=== PATIENT | male | born 1980 | race American Indian/Alaskan Native ===

== ENCOUNTER 2021-01-24 12:38 | Emergency (ER) | payer OTHER ==
[2021-01-24 14:51] VITALS: BP 126/83
[2021-01-24] MEDS ORDERED: LIDOCAINE (1%) 10 MG/1 ML VIAL 20 ML MDV INFILTRATI ONE (15:11)
--- NOTE | 2021-01-24 15:17 | Emergency Department Report ---
- General Chief Complaint: Wound/Laceration Stated Complaint: CUT FINGER/LAC Time Seen by Provider: 01/24/21 14:59 Source: patient Mode of arrival: Ambulatory Limitations: No Limitations - History of Present Illness Initial Comments: Patient is a 40-year-old male presents emergency room complaints of a laceration to the right index finger that occurred just prior to arrival. Patient states he accidentally cut himself with a razor blade while cutting a bag. He states his tetanus immunization has been within the last 5 years. He denies any difficulty moving the finger. He denies any numbness or weakness. No past medical history. No allergies to medications. - Related Data Allergies Allergy/AdvReac Type Severity Reaction Status Date / Time No Known Allergies Allergy Unverified 01/24/21 14:48 ED Review of Systems ROS: Stated complaint: CUT FINGER/LAC Other details as noted in HPI Comment: All other systems reviewed and negative ED Past Medical Hx - Past Medical History Previous Medical History?: No - Surgical History Past Surgical History?: No - Social History Smoking Status: Never Smoker Substance Use Type: None, Alcohol ED Physical Exam - General Limitations: No Limitations General appearance: alert, in no apparent distress - Head Head exam: Present: atraumatic, normocephalic - Eye Eye exam: Present: normal appearance - ENT ENT exam: Present: mucous membranes moist - Extremities Exam Extremities exam: Present: other (there is a 2 cm curved laceration present to the distal end of the right index finger, no active bleeding, no foreign body, no muscle/tendon involvement, FROM, neurovascularly intact ) - Neurological Exam Neurological exam: Present: alert, oriented X3 - Psychiatric Psychiatric exam: Present: normal affect, normal mood - Skin Skin exam: Present: warm, dry ED Course Vital Signs 01/24/21 14:49 Temperature 98.7 F Pulse Rate 61 Blood Pressure 126/83 [Left] O2 Sat by Pulse 99 Oximetry - Laceration /Wound Repair Right Finger Wound Location: upper extremity (right index finger) Wound Length (cm): 2 Wound's Depth, Shape: superficial Wound Explored: clean Irrigated w/ Saline (ccs): 50 Betadine Prep?: Yes Anesthesia: 1% Lidocaine Volume Anesthetic (ccs): 3 Wound Debrided: moderate Wound Repaired With: sutures Suture Size/Type: 4:0 Number of Sutures: 5 (ethilon) Layer Closure?: No Sterile Dressing Applied?: Yes Progress: Verbal consent obtained by patient Wound irrigated with saline and thoroughly scrubbed with Betadine, no foreign bodies identified, no muscle or tendon vomit, 3 cc of 1% lidocaine with epinephrine used anesthetic, Betadine prep again, sterile drapes applied, sterile gloves worn, 4-0 Ethilon used for skin closure, 5 sutures placed, patient tolerated well, no complications, bleeding controlled, sterile dressing applied ED Medical Decision Making - Medical Decision Making Patient is a 40-year-old male presents emergency room complaints of a laceration to the right index finger that occurred just prior to arrival. Patient states he accidentally cut himself with a razor blade while cutting a bag. He states his tetanus immunization has been within the last 5 years. He denies any difficulty moving the finger. He denies any numbness or weakness. No past medical history. No allergies to medications. Vitals are stable. On exam:there is a 2 cm curved laceration present to the distal end of the right index finger, no active bleeding, no foreign body, no muscle/tendon involvement, FROM, neurovascularly intact. Laceration repaired per procedure note without any complications. Advised patient Sutures need to be removed in 10 to 14 days, may return to emergency room for removal. Please keep area clean, dry, covered. Wash with antibacterial soap and water and pat dry. No hot tub or pool. Showering is fine. Follow-up with your primary care doctor for reexamination. Return to emergency room immediately for any new or worsening symptoms or any signs of infection. Critical care attestation.: If time is entered above; I have spent that time in minutes in the direct care of this critically ill patient, excluding procedure time. ED Disposition Clinical Impression: Laceration of finger Qualifiers: Encounter type: initial encounter Finger: index finger Damage to nail status: without damage Foreign body presence: without foreign body Laterality: right Qualified Code(s): S61.210A - Laceration without foreign body of right index finger without damage to nail, initial encounter Disposition: HOME / SELF CARE / HOMELESS Is pt being admited?: No Does the pt Need Aspirin: No Condition: Stable Instructions: Laceration Care, Adult Additional Instructions: Sutures need to be removed in 10 to 14 days, may return to emergency room for removal. Please keep area clean, dry, covered. Wash with antibacterial soap and water and pat dry. No hot tub or pool. Showering is fine. Follow-up with your primary care doctor for reexamination. Return to emergency room immediately for any new or worsening symptoms or any signs of infection. Referrals: MELIDA MILLER MD [Staff Physician] - 3-5 Days [facility] [Provider Group] - 3-5 Days Forms: Work/School Release Form(ED) Time of Disposition: 17:38 Print Language: MARSHALLESE
== END 2021-01-24 18:20 | disposition home or self-care (01) ==
LOC: ED 12:38
DX: S61.210A Laceration without foreign body of right index finger without damage to nail, initial encounter (principal); W45.8XXA Other foreign body or object entering through skin, initial encounter; Y93.89 Activity, other specified; Y92.89 Other specified places as the place of occurrence of the external cause; Y99.8 Other external cause status
CPT/HCPCS: 99281